=== PATIENT | female | born 1970 | race Caucasian/White ===

== ENCOUNTER 2017-05-13 22:41 | Observation (INO) | payer SELFPAY ==
[~2017-05-13] VITALS: Ht 165.1 cm; Wt 74.5 kg
[~2017-05-13 22:41] MED LIST: CYCL-36 PO; IBUP-238 PO; LORT5TAB PO; MEDR4PAK3 PO
[2017-05-13] MEDS ORDERED: EPINEPHrine HCL (1:1000) 1 MG/ML VIAL IM ONE ×2 (22:45→23:30)
[2017-05-13] MEDS ORDERED: SODIUM CHLOR 0.9% 1000 ML INJ 1,000 ML IV SCH (22:45)
[2017-05-13] MEDS ORDERED: diphenhydrAMINE HCL 50 MG/ML VIAL IVP ONE ×2 (22:45→23:30)
[2017-05-13] MEDS ORDERED: SODIUM CHLORIDE 0.9% FLUSH 10 ML FLUSH IV FLUSH PRN ×2 (22:45→23:30)
[2017-05-13] MEDS ORDERED: methylPREDNISolone SOD SUCC 125 MG/2 ML VIAL IV PUSH ONE (22:45)
[2017-05-13] MEDS ORDERED: FAMOTIDINE 20 MG/2 ML VIAL IV PUSH ONE (22:45)
[2017-05-13 22:50] VITALS: BP 136/81; PULSE 77; RESP 22; TEMP 97.4; O2SAT 97
--- NOTE | 2017-05-13 22:58 | PD ---
HPI Chief Complaint: Allergic/Adverse Reaction Time Seen by Provider: 22:45 Travel History International Travel<30 days: No Contact w/Intl Traveler<30days: No Traveled to known affect area: No History of Present Illness HPI 46-year-old female presents to the emergency department by private transportation in the care of her spouse for evaluation of acute allergic reaction onset within the past hour shortly after eating shellfish with known prior history to sensitivity to seafood and shellfish. Patient also had new type of dessert that may have had a component to onset of her symptoms according to spouse and patient. Patient complains of urticaria lip tongue or throat swelling and shortness of breath. No report of chest pain near-syncope or syncope diarrhea or vomiting. Patient's speech has been normal. Patient is allergic to any known medications that she has taken in the past although is taking any anti-inflammatory has not had any adverse reaction to this point with his medication and has not taken it today. PFSH Past Medical History Narrative Medical Sciatica no tobacco use nursing notes reviewed Musculoskeletal: Yes (SCIAT[facility] 2006) : 1 Para: 1 Past Surgical History Section: Yes (1994) Gynecologic Surgery: Yes () Social History Alcohol Use: No Tobacco Use: No Substance Use: No Allergies-Medications (Allergen,Severity, Reaction): Uncoded Allergies: shellfish, canned foods, Peanuts, [place], Pork (Adverse Reaction, Severe, Rash, Respiratory, Angioedema, 05/13/17) Reported Meds & Prescriptions Reported Meds & Active Scripts Active Reported Jaclyn-D 24 Hour Allergy (Fexofenadine-Pseudoephedrine ER 24 HR) 180-240 Anibal 1 Tab PO DAILY Diclofenac Sodium DR (Diclofenac Sodium) 75 Mg Tabdr 75 Mg PO DAILY Pantoprazole (Pantoprazole Sodium) 40 Mg Tab 40 Mg PO DAILY Review of Systems Except as stated in HPI: all other systems reviewed are Neg General / Constitutional: No: Fever, Chills HENT: Positive: Other (lip tongue throat swelling), No: Sore Throat, Congestion Cardiovascular: No: Chest Pain or Discomfort Respiratory: Positive: Cough, Shortness of Breath, Wheezing Gastrointestinal: No: Nausea, Vomiting, Diarrhea, Abdominal Pain Genitourinary: No: Decreased Urinary Output Musculoskeletal: No: Myalgias, Arthralgias Skin: Positive Rash, Positive Hives Neurologic: No: Weakness Psychiatric: No: Anxiety Hematologic/Lymphatic: No: Easy Bruising Physical Exam Narrative GENERAL: Well-developed well-nourished female without stridor or hoarseness SKIN: Warm and dry. Diffuse urticaria. HEAD: Normocephalic. EYES: No scleral icterus. No injection or drainage. ENT: Mild lip edema and airway is patent NECK: Supple, trachea midline. No JVD or lymphadenopathy. CARDIOVASCULAR: Regular rate and rhythm without murmurs, gallops, or rubs. RESPIRATORY: Breath sounds equal bilaterally. No accessory muscle use. GASTROINTESTINAL: Abdomen soft, non-tender, nondistended. MUSCULOSKELETAL: No cyanosis, or edema. BACK: Nontender without obvious deformity. No CVA tenderness. Data Data Last Documented VS Vital Signs Date Time Temp Pulse Resp B/P (MAP) Pulse Ox O2 Delivery O2 Flow Rate FiO2 05/14/17 00:45 107 18 176/91 (119) 97 Room Air 05/13/17 23:11 97.5 Orders Orders Ecg Monitoring (05/13/17 22:45) Iv Access Insert/Monitor (05/13/17 22:45) Oximetry (05/13/17 22:45) Diphenhydramine Inj (Benadryl Inj) (05/13/17 22:45) Methylprednisolone So Succ Inj (Solumedr (05/13/17 22:45) Famotidine Inj (Pepcid Inj) (05/13/17 22:45) Sodium Chlor 0.9% 1000 Ml Inj (Ns 1000 M (05/13/17 22:45) Sodium Chloride 0.9% Flush (Ns Flush) (05/13/17 22:45) Epinephrine (1:1000) Inj (Adrenalin (1:1 (05/13/17 22:45) Albuterol Neb (Albuterol Neb) (05/13/17 23:00) Diphenhydramine Inj (Benadryl Inj) (05/13/17 23:30) Sodium Chloride 0.9% Flush (Ns Flush) (05/13/17 23:30) Epinephrine (1:1000) Inj (Adrenalin (1:1 (05/13/17 23:30) Methylprednisolone So Succ Inj (Solumedr (05/14/17 06:00) Diphenhydramine Inj (Benadryl Inj) (05/14/17 04:00) Famotidine Inj (Pepcid Inj) (05/14/17 09:00) Place In Observation (05/14/17 ) Vital Signs (Adult) Q4H (05/14/17 00:47) Activity Oob Ad Dena (05/14/17 00:47) Shaper Machine Hand / Telemetry .CONTINUOUS (05/14/17 00:47) Diet Regular Basic (05/14/17 Breakfast) Sodium Chlor 0.9% 1000 Ml Inj (Ns 1000 M (05/14/17 00:47) Sodium Chloride 0.9% Flush (Ns Flush) (05/14/17 01:00) Sodium Chloride 0.9% Flush (Ns Flush) (05/14/17 09:00) Ondansetron Inj (Zofran Inj) (05/14/17 01:00) Scd Bilateral/Knee High ARUN.BID (05/14/17 00:47) Adeel Bilateral/Knee High ARUN.QSHIFT (05/14/17 00:49) Acetaminophen (Tylenol) (05/14/17 01:00) Acetamin-Hydrocod 325-5 Mg ([place] 5-325 (05/14/17 01:00) Acetamin-Hydrocod 325-10 Mg ([place] 10-32 (05/14/17 01:00) Docusate Sodium-Senna (Silvia-Colace) (05/14/17 09:00) Magnesium Hydroxide Liq (Milk Of Magnesi (05/14/17 01:00) Sennosides (Senokot) (05/14/17 01:00) Bisacodyl Supp (Dulcolax Supp) (05/14/17 01:00) Lactulose Liq (Lactulose Liq) (05/14/17 01:00) Admit Order (Ed Use Only) (05/14/17 ) ^ Saline Lock (05/14/17 00:52) Resp Oxygen Gee C Titrat 1-4 L (05/14/17 ) Notify Dr: Other (05/14/17 00:52) Sodium Chloride 0.9% Flush (Ns Flush) (05/14/17 09:00) Sodium Chloride 0.9% Flush (Ns Flush) (05/14/17 01:00) MDM Medical Decision Making Medical Screen Exam Complete: Yes Emergency Medical Condition: Yes Medical Record Reviewed: Yes Differential Diagnosis Acute allergic reaction idiopathic urticaria angioedema and anaphylaxis Narrative Course Patient was brought directly from triage to exam room where she was noted to have an acute allergic reaction epinephrine 0.3ml 1-1000 administered IM patient placed on sheet metal erector and pulse oximetry as IV access obtained ordered Solu-Medrol 125 mg IV Benadryl 25 mg IV and Pepcid 20 mg IV to be administered along with maintenance normal saline at 125 cc per hour and albuterol nebulized treatment 1 At 11 PM patient receiving updraft treatment Patient with ongoing hives --additional epi 1:100 0.3 ml IM and benadryl 25 mg IV Patient starting to clear symptoms --OBS admit discussed with Patient and spouse --agreeable Physician Communication Physician Communication discussed with [facility] MD Dr Levi Diagnosis Primary Impression: Acute allergic reaction Admitting Information Admitting Physician Requests: Observation Sheri Sparks MD May 13, 2017 22:58
[2017-05-13] MEDS ORDERED: RESP: ALBUTEROL 2.5 MG/3 ML NEB (SCH) NEB ONE (23:00)
[2017-05-13 23:11] VITALS: BP 136/81; PULSE 77; RESP 22; TEMP 97.5
[2017-05-13 23:14] VITALS: BP 147/101; PULSE 82; RESP 20; O2SAT 95
[2017-05-13] MEDS ORDERED: PANT40TA3 PO (23:27)
[2017-05-13] MEDS ORDERED: FEXO1TAB97 PO (23:27)
[2017-05-13] MEDS ORDERED: DICL75TA PO (23:27)
[2017-05-14 00:45] VITALS: BP 176/91; PULSE 107; RESP 18; O2SAT 97
[2017-05-14] MEDS ORDERED: SODIUM CHLOR 0.9% 1000 ML INJ 1,000 ML IV SCH (00:47)
[2017-05-14] MEDS ORDERED: SODIUM CHLORIDE 0.9% FLUSH 10 ML FLUSH IVF PRN (01:00)
[2017-05-14] MEDS ORDERED: ACETAMINOPHEN/HYDROcodone 325 MG/10 MG TAB PO PRN (01:00)
[2017-05-14] MEDS ORDERED: ONDANSETRON HCL 4 MG/2 ML VIAL IVP PRN (01:00)
[2017-05-14] MEDS ORDERED: ACETAMINOPHEN/HYDROcodone 325 MG/5 MG TAB PO PRN (01:00)
[2017-05-14] MEDS ORDERED: SODIUM CHLORIDE 0.9% FLUSH 10 ML FLUSH IV FLUSH PRN (01:00)
[2017-05-14] MEDS ORDERED: LACTULOSE SYRUP 20 GM/30 ML CUP PO PRN (01:00)
[2017-05-14] MEDS ORDERED: SENNOSIDES 8.6 MG TAB PO PRN (01:00)
[2017-05-14] MEDS ORDERED: ACETAMINOPHEN 325 MG TAB PO PRN (01:00)
[2017-05-14] MEDS ORDERED: MAGNESIUM HYDROXIDE SUSP 30 ML CUP PO PRN (01:00)
[2017-05-14] MEDS ORDERED: BISACODYL 10 MG SUPP RECTAL PRN (01:00)
[2017-05-14 01:51] VITALS: BP 126/72
[2017-05-14] MEDS ORDERED: MEDR4PAK PO (02:10)
[2017-05-14] MEDS ORDERED: EPIP0.3I IM (02:10)
[2017-05-14] MEDS ORDERED: diphenhydrAMINE HCL 50 MG/ML VIAL IV PUSH SCH (04:00)
[2017-05-14] MEDS ORDERED: methylPREDNISolone SOD SUCC 40 MG/1 ML VIAL IV PUSH SCH (06:00)
[2017-05-14] MEDS ORDERED: FAMOTIDINE 20 MG/2 ML VIAL IV PUSH SCH (09:00)
[2017-05-14] MEDS ORDERED: DOCUSATE SODIUM 50 MG/SENNA 8.6 MG TAB PO SCH (09:00)
[2017-05-14] MEDS ORDERED: SODIUM CHLORIDE 0.9% FLUSH 10 ML FLUSH IV FLUSH SCH ×2 (09:00)
== END 2017-05-14 02:37 | disposition left against medical advice (07) ==
LOC: PHED 22:41 → PHEDA 05-14 00:54
PROVIDERS: ADMIT Hospitalist; ATTEND Hospitalist
DX: T78.02XA Anaphylactic reaction due to shellfish (crustaceans), initial encounter (principal); L50.9 Urticaria, unspecified
CPT/HCPCS: 94664; 96361; 96374; 96375; 96376; 99285; G0378; J0171; J1200; J2930; J7030; J7613